=== PATIENT | female | born 1980 | race Caucasian/White ===

== ENCOUNTER 2019-07-08 14:32 | Outpatient (CLI) | payer BC, SELFPAY ==
--- NOTE | ~2019-07-08 | MM_ITS ---
EXAMINATION: MM scrn rudolph implant BI w amaury HISTORY: Screening mammogram TECHNIQUE: Craniocaudal and mediolateral oblique 3-D tomosynthesis images with implant displacement a nd synthetic 2-D images were generated. Craniocaudal and mediolateral oblique views of the breasts wi thout implant displacement were obtained using full field digital mammography. CAD analysis was submi tted and interpreted. COMPARISON: No prior mammogram is available for comparison at this institution. BREAST PARENCHYMAL COMPOSITION: There are scattered areas of fibroglandular density. FINDINGS: Status post bilateral augmentation mammoplasty. There is no evidence of suspicious mass, calcification, or architectural distortion to suggest malignancy in either breast. There has been no suspicious interval change. IMPRESSION: 1. No mammographic evidence of malignancy. 2. Recommend routine screening mammography in one year. BI-RADS Category 1: Negative Reviewed, dictated and finalized at location A.
== END 2019-07-08 14:33 | disposition home or self-care (01) ==
LOC: ANHIMG 14:36
PROVIDERS: PCP Internal Medicine; Visit Provider Obstetrics & Gynecology
DX: Z12.31 Encounter for screening mammogram for malignant neoplasm of breast (principal)
CPT/HCPCS: 77063; 77067

== ENCOUNTER 2020-07-09 08:05 | Outpatient (CLI) | payer BC, SELFPAY ==
--- NOTE | ~2020-07-09 | MM_ITS ---
EXAMINATION: MM scrn rudolph implant BI w amaury HISTORY: Screening mammogram TECHNIQUE: Craniocaudal and mediolateral oblique 3-D tomosynthesis images with implant displacement a nd synthetic 2-D images were generated. Craniocaudal and mediolateral oblique views of the breasts wi thout implant displacement were obtained using full field digital mammography. CAD analysis was submi tted and interpreted. COMPARISON: 07/08/2019, 07/06/2018 BREAST PARENCHYMAL COMPOSITION: There are scattered areas of fibroglandular density. FINDINGS: There is no evidence of suspicious mass, calcification, or architectural distortion to sugg est malignancy in either breast. There has been no suspicious interval change. IMPRESSION: 1. No mammographic evidence of malignancy. 2. Recommend routine screening mammography in one year. BI-RADS Category 1: Negative Reviewed, dictated and finalized at location A.
== END 2020-07-09 08:06 | disposition home or self-care (01) ==
LOC: ANHIMG 08:10
PROVIDERS: PCP Internal Medicine; Visit Provider Obstetrics & Gynecology
DX: Z12.31 Encounter for screening mammogram for malignant neoplasm of breast (principal)
CPT/HCPCS: 77063; 77067

== ENCOUNTER 2021-08-01 09:50 | Outpatient (CLI) | payer OTHER, BC, SELFPAY ==
--- NOTE | 2021-08-01 10:02 | EST_ITS ---
Patient Info Name: Latisha Ross Age: 41 years : 1980 Gender: Female Ht: 67 in Wt: 145 lbs BSA: 1.77 m2 Exam Date: 08/01/2021 10:36 AM Exam Location: [facility] Patient Status: Outpatient Admit Date: 08/01/2021 Staff Ordering Physician: Candis Sheehan-Karlos Customer Care Professional: Lawanda Epperson RDCS Attending Provider: DR. HAMM Referring Physician: Aguila COLES; Exercise Technologist: Darlene Freeman CT Exercise Physician: Moe Hamm DO Exam Type: CA stress echo Study Info Indications R07.9 - Chest pain, unspecified R94.31 - Abnormal electrocardiogram ECG EKG Treadmill exercise stress echocardiogram is performed. Summary 1. 1. Negative David exercise stress test for ischemic ST changes by ECG criteria. 2. 2. Good functional capacity, achieving 10 METs of workload. 3. 3. Baseline hypertension with hypertensive response to exercise. 4. 4. Appropriate HR response to exercise. 5. 5. Appropriate HR recovery at 1 minute post exercise. 6. 6. Negative stress echocardiogram for ischemia by wall motion analysis. 7. 7. Patient informed of the above results. Stress Echo Findings Left Ventricle Appropriate increase in LV endocardial thickening with systole. Appropriate augmentation of contractility with systole. No wall motion abnormality. Left Ventricle Normal LV systolic function, no wall motion abnormality. Protocol: David Stress ECG Details Stage: REST Duration (min): 5 min : 18 sec Speed (mph): 0.0 Grade (%): 0 HR (bpm): 92 SBP (mmHg): 185 DBP (mmHg): 120 METS: --- Stage: REST Duration (min): 14 min : 39 sec Speed (mph): 0.0 Grade (%): 0 HR (bpm): 91 SBP (mmHg): 150 DBP (mmHg): 110 METS: --- Stage: STAGE 1 Duration (min): 1 min : 0 sec Speed (mph): 1.7 Grade (%): 10 HR (bpm): 109 SBP (mmHg): 150 DBP (mmHg): 110 METS: --- Stage: STAGE 1 Duration (min): 2 min : 0 sec Speed (mph): 1.7 Grade (%): 10 HR (bpm): 124 SBP (mmHg): 150 DBP (mmHg): 110 METS: --- Stage: STAGE 1 Duration (min): 3 min : 0 sec Speed (mph): 1.7 Grade (%): 10 HR (bpm): 122 SBP (mmHg): 152 DBP (mmHg): 113 METS: --- Stage: STAGE 2 Duration (min): 1 min : 0 sec Speed (mph): 2.5 Grade (%): 12 HR (bpm): 132 SBP (mmHg): 152 DBP (mmHg): 113 METS: --- Stage: STAGE 2 Duration (min): 2 min : 0 sec Speed (mph): 2.5 Grade (%): 12 HR (bpm): 140 SBP (mmHg): 174 DBP (mmHg): 112 METS: --- Stage: STAGE 2 Duration (min): 3 min : 0 sec Speed (mph): 2.5 Grade (%): 12 HR (bpm): 147 SBP (mmHg): 174 DBP (mmHg): 112 METS: --- Stage: STAGE 3 Duration (min): 1 min : 0 sec Speed (mph): 3.4 Grade (%): 14 HR (bpm): 165 SBP (mmHg): 209 DBP (mmHg): 96 METS: --- Stage: STAGE 3 Duration (min): 2 min : 0 sec Speed (mph): 3.4 Grade (%): 14 HR (bpm): 173 SBP (mmHg): 209 DBP (mmHg): 96 METS: ---
== END 2021-08-01 09:51 | disposition home or self-care (01) ==
LOC: ANHCARD 09:52
PROVIDERS: PCP Internal Medicine; Visit Provider Clinical Nurse Specialist
DX: R94.31 Abnormal electrocardiogram [ECG] [EKG] (principal)
CPT/HCPCS: 93351

== ENCOUNTER 2021-08-29 11:40 | Outpatient (CLI) | payer OTHER, BC, SELFPAY ==
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
== END 2021-08-29 11:41 ==
PROVIDERS: PCP Nurse Practitioner; Visit Provider Nurse Practitioner
DX: M54.2 Cervicalgia (principal); M47.894 Other spondylosis, thoracic region
CPT/HCPCS: 71111; 72040; 72070

== ENCOUNTER 2021-12-13 08:00 | Outpatient (RCR) | payer OTHER, BC, SELFPAY ==
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
--- NOTE | 2021-10-16 13:57 | PCPTNOTE ---
Patient called & cancelled scheduled appointment this date due to no transportation.
--- NOTE | 2021-10-17 13:36 | PCPTNOTE ---
Patient called & cancelled scheduled appointment this date due to still no transportation.
--- NOTE | 2021-10-18 14:24 | PCPTNOTE ---
Patient called & cancelled scheduled appointment this date due to not feeling well.
--- NOTE | 2021-10-23 15:16 | PTOPEVAL ---
PHYSICAL THERAPY RE-EVALUATION AND UPDATED PLAN OF CARE 10-23-21 Refer to the clinical summary below, for her status today, compared to the initial evaluation. The goals were partially achieved. Continue PT treatment 2x/wk for 3 weeks. Thank you for referring Latisha Ross to [facility].? Please review, sign, date and return this plan of care VIJAY. I agree with and certify that the following plan of care is medically necessary. Referring Physician Date Attending Provider: Rajni Larsen NP Subjective Information Latisha reports: is better, Query Text:As Reported By Patient/ but not back to usual yet; L Family side tight and burning; have been doing lots of stretching; had dry needling 2x- it helped loosen it; want to continue PT Pain Assessment Pain Scale Pain Scale Used Numeric (1 - 10) Self Report Pain Assessment Bilateral Spine, Thoracic Reported Pain Level 4 Pain Description Burning,Soreness,Tightness Radicular Pain Location L>R; few days ago had a bad headache; have had 5-6 headaches past few wks Pain Frequency Chronic,Continuous Other Pain Description deep ache, burning is the most Lowest Pain Intensity 4 Greatest Pain Intensity 8 Pain Aggravating Factors Sitting,Weight Bearing/ Standing Additional Pain Score Comments reported tolerances: sitting 3 -4 hours, walking is OK- not limited, standing 1 hr;sleep 3 hours at time; at home, is not lifting much; able to do all her light home tasks; Oswestry self assessment functional score of 32% limitation in activity level; Interventions Used Interventions Used By Clinicians Education,Exercise Pain Relief Interventions Used By Exercise,Heat,Inactivity/Rest, Patient Medication,Position Change Other Alleviating Interventions ibuprofen Cervical ROM Comments cervical: active motion in sitting: rotation R 60 ' increase pain L side neck / L 70'; side bend to R 30'/ L 25' - no increase pain active R and L shoulder flexion and abduction full ROM and no pain increase Gross Upper Extremity Strength Comments functional strength testing: - B UE box lift, increase to 15#, then stopped due to
--- NOTE | 2021-10-30 17:31 | PCPTNOTE ---
Patient treatment and note was performed by student [employer] with supervision and elevation by licensed [employer], Maisha Licona.
--- NOTE | 2021-10-31 16:07 | PCPTNOTE ---
On 10/31/21, the student, Riki Forrest, provided care and completed [facility] documentation on this patient. I have reviewed the student's documentation and agree with the findings.
--- NOTE | 2021-11-06 09:44 | PCPTNOTE ---
On 11/06/21, the student, Riki Forrest, provided care and completed [facility] documentation on this patient. I have reviewed the student's documentation and agree with the findings.
--- NOTE | 2021-11-08 09:58 | PCPTNOTE ---
Patient called & had to rescheduled appointment this date due to work.
--- NOTE | 2021-11-11 12:38 | PCPTNOTE ---
On 11/11/21, the student, Riki Forrest, provided care and completed [facility] documentation on this patient. I have reviewed the student's documentation and agree with the findings.
--- NOTE | 2021-11-15 14:33 | PCPTNOTE ---
pt called and canceled today's reeval; unable to reschedule until Dec 05;
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
== END 2021-12-13 15:09 | disposition home or self-care (01) ==
LOC: ANHPT 08:00
PROVIDERS: PCP Nurse Practitioner; Visit Provider Nurse Practitioner
DX: M54.6 Pain in thoracic spine (principal); M54.2 Cervicalgia; R07.81 Pleurodynia; V29.9XXA Motorcycle rider (driver) (passenger) injured in unspecified traffic accident, initial encounter
CPT/HCPCS: 97014; 97110; 97112; 97140; 97161; 97530; G0283

== ENCOUNTER 2022-01-30 08:50 | Outpatient (CLI) | payer OTHER, SELFPAY ==
--- NOTE | ~2022-01-30 | MR_ITS ---
EXAMINATION: MR cervical spine wo con DATE: 01/30/2022 09:38 INDICATION: Cervical radiculopathy. TECHNIQUE: Magnetic resonance imaging (MRI) of the cervical spine was performed without intravenous c ontrast. COMPARISON: Cervical spine radiographs 08/29/2021 FINDINGS: There is 2 mm retrolisthesis of C5 on C6. There is mild chronic anterior wedging of T1 and T3 vertebral bodies. There is mildly decreased disc height at C5-C6. The spinal cord signal intensity is normal. The following disc levels are specifically discussed: C2-C3: There is a central protrusion. There is no uncovertebral joint osteoarthritis. There is mild b ilateral facet joint osteoarthritis. There is no neural foraminal stenosis. There is no central canal stenosis. C3-C4: There is a central protrusion. There is no uncovertebral joint osteoarthritis. There is mild b ilateral facet joint osteoarthritis. There is no neural foraminal stenosis. There is mild central can al stenosis. C4-C5: There is a central protrusion. There is mild bilateral uncovertebral joint osteoarthritis. The re is moderate right facet joint osteoarthritis. There is no neural foraminal stenosis. There is mild central canal stenosis. C5-C6: The disc is bulging. There is moderate bilateral uncovertebral joint osteoarthritis. There is no facet joint osteoarthritis. There is mild bilateral neural foraminal stenosis. There is mild centr al canal stenosis. C6-C7: The disc does not extend beyond the endplate margin. There is mild bilateral uncovertebral dania nt osteoarthritis. There is no facet joint osteoarthritis. There is no neural foraminal stenosis. The re is no central canal stenosis. C7-T1: There is a central protrusion. There is no uncovertebral joint osteoarthritis. There is mild b ilateral facet joint osteoarthritis. There is no neural foraminal stenosis. There is no central canal stenosis. IMPRESSION: 1. Mild cervical spondylosis. Reviewed, dictated and finalized at location A.
== END 2022-01-30 08:51 | disposition home or self-care (01) ==
PROVIDERS: PCP Internal Medicine; Visit Provider Nurse Practitioner
DX: M47.22 Other spondylosis with radiculopathy, cervical region (principal)
CPT/HCPCS: 72141

== ENCOUNTER 2022-06-29 07:57 | Outpatient (CLI) | payer OTHER, SELFPAY ==
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
== END 2022-06-29 07:58 | disposition home or self-care (01) ==
PROVIDERS: PCP Internal Medicine; Visit Provider Nurse Practitioner Family
DX: G44.52 New daily persistent headache (NDPH) (principal); G54.0 Brachial plexus disorders; M54.81 Occipital neuralgia; M79.18 Myalgia, other site
CPT/HCPCS: 70551

== ENCOUNTER 2024-04-25 17:03 | Emergency (ER) | payer OTHER, SELFPAY ==
[2024-04-25 17:13] VITALS: BP 144/101; PULSE 85; RESP 18; TEMP 36.9; O2SAT 100
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
[2024-04-25 17:25] VITALS: BP 136/95; PULSE 85
== END 2024-04-25 17:50 | disposition home or self-care (01) ==
PROVIDERS: Emergency Provider Nurse Practitioner Family; Referring Provider Emergency Medicine
DX: H66.001 Acute suppurative otitis media without spontaneous rupture of ear drum, right ear (principal); I10 Essential (primary) hypertension
CPT/HCPCS: 99213; G0463

== ENCOUNTER 2024-07-26 10:43 | Outpatient (CLI) | payer OTHER, SELFPAY ==
--- NOTE | ~2024-07-26 | XR_ITS ---
Lumbosacral Spine: AP and lateral views Clinical History: Pain Findings: The normal lordotic curve is maintained. The vertebral bodies and posterior elements are i ntact. There is moderate degenerative disc narrowing L4-L5. There is mild to moderate facet arthropat hy from L3 through S1. The sacroiliac joints are normally outlined. Impression: Mild degenerative spondylosis of the lower lumbar spine, as above. Reviewed, dictated and finalized at location M. Impression: Mild degenerative spondylosis of the lower lumbar spine, as above.
== END 2024-07-26 10:44 | disposition home or self-care (01) ==
PROVIDERS: PCP Internal Medicine; Visit Provider Internal Medicine
DX: M47.896 Other spondylosis, lumbar region (principal)
CPT/HCPCS: 72100

== ENCOUNTER 2024-11-02 08:12 | Emergency (ER) | payer OTHER, SELFPAY ==
--- OUTSIDE RECORDS SUMMARY | 2024-11-02 08:14 | XMS_ITS | Encounter Summary ---
Author Organization [employer] Address [address] [place] [address] Care Team Providers Care Plumbing Assembler Name Role Phone Mariam Colunga MD Primary Care Provider [phone] Encounter Details Date Type Department Care Team (Late st Contact Info) Description 01/10/2008 Outpatient [facility] [address] [place] [phone] Mariam Colunga MD [address] [place] [phone] Palpitations Social History Tobacco Use Types Packs/Day Years Used Date Smoking Tobacco: Never Assessed Comments No Sex and Gender Information Value Date Recorded Sex Assigned at Not on file 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 Gender Identity Not on file Sexual Orientation Not on file documented as of this encounter Plan of Treatment Not on file documented as of this encounter Procedures Procedure Name Priority Date/Time Associated Diagnosis Comments TSH REFLEXIVE Routine 01/11/2008 5:00 AM CDT COMPREHENSIVE METABOLIC PANEL Routine 01/11/2008 5:00 AM CDT documented in this encounter Results * TSH REFLEXIVE (01/11/2008 5:00 AM CDT) TSH, ULTRASENSITIVE 0.50 mIU/L [employer] [facility] Comment: REFERENCE RANGE: > OR = 20 YEARS: 0.40-4.50 RANGES FIRST TRIMESTER 0.20-4.70 SECOND TRIMESTER 0.30-4.10 THIRD TRIMESTER 0.40-2.70 REPORT COMMENT: ADDL MARIAM KITCHEN Test Performed at: [employer] [facility]. [address] [place] [address] CHARISSE JARA MD Mariam Colunga MD CHEMISTRY ORDERABLES Final Re sult INTERFACE SYSTEM Refer to clinic/hospital department [facility] [employer] [facility] [address] [place] [address] * COMPREHENSIVE METABOLIC PANEL (01/11/2008 5:00 AM CDT) GLUCOSE 93 65 - 99 mg/dL [facility] [employer] [facility] Comment:FASTING REFERENCE IN TERVAL BUN 11 7 - 25 mg/dL [facility] [employer] . [facility] CREATININE 0.63 0.50 - 1.20 mg/dL [employer] . [facility] GFR >60 > OR = 60 mL/min/1 .73m2 [employer] [facility] GFR, >60 > OR = 60 mL/min/1 .73m2 [employer] . [facility] BUN/CREAT RATIO NOT APPLICABLE 6 - 22 (calc) [employer] . [facility] Comment: BUN/CREATININE RATIO IS NOT REPORTED WHEN THE BUN AND CREATININE VALUES ARE WITHIN NORMAL LIMITS. SODIUM 138 135 - 146 mmol/L [facility]. [facility] POTASSIUM 4.3 3.5 - 5.3 mmol/L [employer] . [facility] CHLORIDE 102 98 - 110 mmol/L [employer] . [facility] CO2 23 21 - 33 mmol/L [employer] . [facility] CALCIUM 9.5 8.6 - 10.2 mg/dL [employer] [facility] . [facility] TOTAL PROTEIN 7.5 6.2 - 8.3 g/dL [employer] [facility] . [facility] ALBUMIN 4.7 3.6 - 5.1 g/dL [facility] GLOBULIN 2.8 2.2 - 3.9 g/dL (calc) [facility]. [facility] ALBUMIN/GLOBULI N RATIO 1.7 1.0 - 2.1 (calc) [facility] [employer] . [facility] BILIRUBIN TOTAL 0.6 0.2 - 1.2 mg/dL [facility] ALKALINE PHOSPHATASE 71 33 - 115 U/L [employer] . [facility] AST 20 10 - 30 U/L [facility] ALT 15 6 - 40 U/L [facility] Comment: Test Performed at: [email or web address] [facility] [address] [place] [address] CHARISSE JARA MD us Mariam Colunga MD CHEMISTRY ORDERABLES Final Re sult INTERFACE SYSTEM Refer to clinic/hospital department [facility] [place] [address] [place] [address] documented in this encounter Visit Diagnoses Diagnosis Palpitations documented in this encounter Care Teams Plumbing Assembler Relationship Specialty Start [place] [id number] [phone] PCP - General 01/10/08 documented as of this encounter
--- OUTSIDE RECORDS SUMMARY | 2024-11-02 08:14 | XMS_ITS | Clinical Summary ---
Author Organization [facility] Address [address] [place] [address] Care Team Providers Care Bit Bender Name Role Phone Rajesh Colunga MD Primary Care Provider [phone] Allergies Active Allergy Reactions Criticality Noted Date Comments Amoxicillin Other (See Comments) 01/10/2008 Penicillins 06/05/2005 Penicillins Other (See Comments) 01/10/2008 Medications FLUoxetine (PROZAC) 40 mg capsule Take 40 mg by mouth daily. One and a half daily Active traZODone (DESYREL) 50 mg tablet Take 50 mg by mouth daily at bedtime. One half tablet as needed Active naltrexone (DEPADE) 50 mg tablet Take 1 Tab by mouth daily. 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 Gender Identity Not on file Sexual Orientation Not on file Last Filed Vital Signs Vital Sign Reading Time Taken Comments Blood Pressure 112/80 06/01/2013 11:53 AM VIDEO GAME DESIGNER Pulse - - Temperature - - Respiratory Rate - - Oxygen Saturation - - Inhaled Oxygen Concentration - - Weight 63.5 kg (140 lb) 06/01/2013 11:38 AM VIDEO GAME DESIGNER Height 170.2 cm (5' 7) 06/01/2013 11:38 AM VIDEO GAME DESIGNER Body Mass Index 21.93 06/01/2013 11:38 AM VIDEO GAME DESIGNER Plan of Treatment Health Maintenance Due Date Last Done Comments DTAP/TDAP/TD VACCINES (1 - Tdap) 1997 HEPATITIS B VACCINES (1 of 3 - 19+ 3-dose series) 1997 HPV/Cotest (21-29) 1999 CERVICAL CANCER SCREENING 01/05/2008 HPV/Cotest (30-65) 01/05/2008 PAP SMEAR 01/05/2008 BREAST CANCER SCREENING 2018 COLORECTAL SCREENING 2023 Colorectal Cancer Screening 2023 FIT-DNA Q 3 years 2023 FIT/FOBT Q 1 year 2023 Flex Sig/CT Colonography Q 5 years 2023 Preventative Visit- Commercial 04/13/2024 INFLUENZA VACCINE (#1) 2024 HPV VACCINES Aged Out No longer eligi ble based on patient's age to complete this topic Insurance BS BLUE ACCESS/TRUE BLUE PPO Care Teams Bit Bender Relationship Specialty [place] [id number] [address] PCP - General 01/10/08
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
--- OUTSIDE RECORDS SUMMARY | 2024-11-02 08:14 | XMS_ITS | Encounter Summary ---
Author Organization [employer] Address [address] [place] [address] Care Team Providers Care Reconciliation Manager Name Role Phone Rajesh Colunga MD Primary Care Provider [phone] Encounter Details Date Type Department Care Team (Late st Contact Info) Description 06/05/2005 Orders Only [facility] Internal Medicine [address] [place] [address] [place] [address] [facility] [address] [place] [address] Social History Tobacco Use Types Packs/Day Years Used Date Smoking Tobacco: Never Assessed Comments Unknown Sex and Gender Information Value Date Recorded Sex Assigned at Not on file 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 MEDICATIONS: Medication list current. CHIEF COMPLAINT Patient here for follow up hypertension. HISTORY: HISTORY: 401.1-HYPERTENSION ESSENTIAL BENIGN would like to try something previously she had tried toprol butthis made her quite tired ROS: ENDOCRINE: No heat or cold intolerance, no excessive thirst. CARDIAC: No chest pain, palpitations, orthopnea, dyspnea on exertion, or paroxysmal nocturnal dyspnea. RESPIRATORY: No dyspnea, cough, hemoptysis or wheezing. : No frequency, urgency, hematuria or dysuria. GI: No abdominal pain, nausea, vomiting, diarrhea, constipation, melena, or hematochezia. MUSCULOSKELETAL: No muscle or joint pain, weakness, swelling or inflammation. No restriction of motion, no atrophy or backache. PHYSICAL EXAMINATION: CONSTITUTIONAL: GENERAL APPEARANCE: Healthy appearing patient in no distress. NECK/THYROID: Trachea midline. No thyroid enlargement, tenderness, or mass. No supraclavicular or cervical adenopathy. RESPIRATORY: Clear to auscultation and percussion. Normal respiratory effort. CARDIOVASCULAR: CARDIAC: Regular rhythm. No murmurs, rubs, or gallops. ARTERIAL: Aortic pulses of normal amplitude with no bruits. JUGULAR VEINS Jugular veins within normal limits. GASTROINTESTINAL: ABDOMEN: Soft, non-tender, without masses. Bowel sounds active. LIVER/SPLEEN/KIDNEY: No hepatosplenomegaly, tenderness or nodularity. Kidneys not palpable. ASSESSMENT/PLAN: 401.1-HYPERTENSION ESSENTIAL BENIGN no meds at this point LAB ORDERS: Order number: [id number] Test Ordered: LIPID PANEL 7600 RETURN VISIT : Patient instructed to return in a few weeks. 8 weeks Electronically Signed by: Rajesh Colunga MD on May documented in this encounter Plan of Treatment Not on file documented as of this encounter Visit Diagnoses Not on filedocumented in this encounter Care Teams Reconciliation Manager Relationship Specialty [place] [address] [address] PCP - General 01/10/08 documented as of this encounter
--- OUTSIDE RECORDS SUMMARY | 2024-11-02 08:14 | XMS_ITS | Encounter Summary ---
Author Organization [employer] Address [address] [place] [address] Care Team Providers Care Diamond Grader Name Role Phone Rajesh Colunga MD Primary Care Provider Encounter Details Date Type Department Care Team (Late st Contact Info) Description 06/05/2005 Outpatient Historical [facility] Internal Medicine [facility] [place] [address] Raj[place] [id number] [place] [address] Social History Tobacco Use Types Packs/Day Years Used Date Smoking Tobacco: Never Assessed Comments Unknown Sex and Gender Information Value Date Recorded Sex Assigned at Not on file 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 Gender Identity Not on file Sexual Orientation Not on file documented as of this encounter Last Filed Vital Signs Vital Sign Reading Time Taken Comments Blood Pressure 126/94 06/05/2005 3:30 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
[2024-11-02 08:18] VITALS: BP 130/94; PULSE 79; RESP 16; TEMP 36.4; O2SAT 99
[2024-11-02 08:20] VITALS: O2SAT 98
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
== END 2024-11-02 08:36 | disposition home or self-care (01) ==
PROVIDERS: Emergency Provider Nurse Practitioner Family
DX: J01.90 Acute sinusitis, unspecified (principal); I10 Essential (primary) hypertension; F41.1 Generalized anxiety disorder
CPT/HCPCS: 99213; G0463